=== PATIENT | male | born 1950 | race African-American/Black ===

== ENCOUNTER 2017-04-08 13:15 | Emergency (ER) | payer MEDICARE, MEDICAID ==
[~2017-04-08] VITALS: Ht 177.8 cm; Wt 64.0 kg
[~2017-04-08 13:15] MED LIST: ACET-2853 PO; ASCO-339 PO; BISA10SU RC; CRAN450T3 PO; FERR142T6 PO; FOLI-43; FOLI-43 PO; KEPP500 PO; LEVE500T19 PO; MOM PO; MULT-1116 PO; PHEN100C4; POTA40LI2; SOD133EN RC; VITAMIN B1 PO
[2017-04-08 15:10] LABS: BASOPHILS % 0.5 % (0.0-2.0); EOSINOPHILS % 1.5 % (0.0-5.0); HEMATOCRIT. 46.2 % (42.0-52.0); HEMOGLOBIN. 15.7 g/dL (14.0-18.0); LYMPHOCYTES % 41.4 % (20.0-50.0); MEAN CORPUSCULAR HEMOGLOBIN 33.8 pg (28.0-32.0); MEAN PLATELET VOLUME 8.6 fl (7.4-10.4); MONOCYTES % 7.2 % (2.0-8.0); NEUTROPHILS % 49.4 % (40.0-76.0); PLATELET 112 x1000/uL (130-400); RED BLOOD CELL COUNT 4.66 mill/uL (4.7-6.1); RED CELL DISTRIBUTION WIDTH 17.3 % (11.6-14.6)
[2017-04-08 15:17] LABS: INR 1.1; PROTHROMBIN TIME 11.5 sec (9.4-11.6)
[2017-04-08 15:23] LABS: CHLORIDE 97 mEq/L (98-107)
[2017-04-08 15:39] LABS: CLARITY URINE CLEAR (CLEAR); COLOR URINE DARK YELLOW (YELLOW); KETONES URINE TRACE (NEGATIVE); LEUKOCYTE ESTERASE URINE NEGATIVE (NEGATIVE); NITRITE URINE NEGATIVE (NEGATIVE); OCCULT BLOOD URINE NEGATIVE (NEGATIVE); PH URINE 5.5 (4.5-8.0); PROTEIN URINE 1+ (NEGATIVE); SPECIFIC GRAVITY URINE 1.021 (1.005-1.030)
[2017-04-08] MEDS ORDERED: MORPHINE SULFATE 4 MG/ML CPJ (NOT FOR IM USE) IV ONE (17:00)
[2017-04-08 18:20] VITALS: BP 116/75
== END 2017-04-08 18:35 | disposition home or self-care (01) ==
LOC: ER 13:43
DX: R10.30 Lower abdominal pain, unspecified (principal); R11.2 Nausea with vomiting, unspecified; R68.83 Chills (without fever); E11.9 Type 2 diabetes mellitus without complications; I10 Essential (primary) hypertension; F17.200 Nicotine dependence, unspecified, uncomplicated; F10.20 Alcohol dependence, uncomplicated
CPT/HCPCS: 36415; 74176; 80053; 81003; 83690; 85025; 85610; 96374; 99285; J2270

== ENCOUNTER 2017-06-25 16:52 | Emergency (ER) | payer MEDICARE, MEDICAID ==
[~2017-06-25] VITALS: Ht 175.3 cm; Wt 60.0 kg
[2017-06-25 19:26] LABS: BASOPHILS % 0.4 % (0.0-2.0); EOSINOPHILS % 0.7 % (0.0-5.0); HEMATOCRIT. 38.4 % (42.0-52.0); HEMOGLOBIN. 13.5 g/dL (14.0-18.0); LYMPHOCYTES % 22.9 % (20.0-50.0); MEAN CORPUSCULAR HEMOGLOBIN 36.6 pg (28.0-32.0); MEAN CORPUSCULAR VOLUME 103.8 fL (80.0-94.0); MEAN PLATELET VOLUME 8.8 fl (7.4-10.4); MONOCYTES % 8.9 % (2.0-8.0); NEUTROPHILS % 67.1 % (40.0-76.0); PLATELET 103 x1000/uL (130-400); RED CELL DISTRIBUTION WIDTH 16.1 % (11.6-14.6)
[2017-06-25 19:31] LABS: CHLORIDE 95 mEq/L (98-107)
[2017-06-25 19:33] LABS: PROTHROMBIN TIME 10.9 sec (9.4-11.6)
[2017-06-26] MEDS ORDERED: KETOROLAC 30MG/ML VIAL IV NR (00:12)
[2017-06-26] MEDS ORDERED: ONDANSETRON 4MG ODT PO NR (00:12)
[2017-06-26] MEDS ORDERED: SODIUM CHLORIDE 0.9% 1,000 ML IV ONE (00:12)
[2017-06-26] MEDS ORDERED: FAMOTIDINE 20MG/2ML VIAL IV NR (00:12)
[2017-06-26 00:44] LABS: CLARITY URINE CLEAR (CLEAR); COLOR URINE DARK YELLOW (YELLOW); KETONES URINE 2+ (NEGATIVE); LEUKOCYTE ESTERASE URINE TRACE (NEGATIVE); NITRITE URINE NEGATIVE (NEGATIVE); OCCULT BLOOD URINE NEGATIVE (NEGATIVE); PH URINE 5.5 (4.5-8.0); PROTEIN URINE 2+ (NEGATIVE); SPECIFIC GRAVITY URINE 1.018 (1.005-1.030)
[2017-06-26] MEDS ORDERED: ONDANSETRON HCL 4MG/2ML VIAL IV STA (06:25)
[2017-06-26] MEDS ORDERED: HYDROCODONE/ACETAMINOPHEN 5/325MG TABLET PO STA (06:25)
[2017-06-26 07:11] VITALS: BP 112/72
== END 2017-06-26 07:22 | disposition home or self-care (01) ==
LOC: ER 17:06
DX: K29.00 Acute gastritis without bleeding (principal); R03.0 Elevated blood-pressure reading, without diagnosis of hypertension; E11.9 Type 2 diabetes mellitus without complications; D57.1 Sickle-cell disease without crisis
CPT/HCPCS: 36415; 80053; 81003; 83690; 85025; 85610; 96361; 96374; 96375; 99285; J1885; J2405; J3490; J7030; Q0162

== ENCOUNTER → 2017-07-06 | Outpatient (CLI) | payer MEDICARE, MEDICAID | END | disposition home or self-care (01) | LOC: MRI 11:05 | PROVIDERS: ATTEND Internal Medicine Gastroenterology | DX: K85.90 Acute pancreatitis without necrosis or infection, unspecified (principal); R53.1 Weakness | CPT/HCPCS: 74181 ==

== ENCOUNTER 2018-07-09 20:25 | Inpatient (IN) | payer MEDICARE, MEDICAID ==
[~2018-07-09] VITALS: Ht 167.6 cm; Wt 59.9 kg
[~2018-07-09 20:25] MED LIST changes: -ACET-2853 PO; -ASCO-339 PO; -BISA10SU RC; -CRAN450T3 PO; -FERR142T6 PO; -FOLI-43; -FOLI-43 PO; -LEVE500T19 PO; -MOM PO; -MULT-1116 PO; -PHEN100C4; -POTA40LI2; -SOD133EN RC; -VITAMIN B1 PO
[2018-07-09] MEDS ORDERED: ONDANSETRON HCL 4MG/2ML INJ IV STA (21:18)
[2018-07-09] MEDS ORDERED: MORPHINE SULFATE 4 MG/ML CPJ (NOT FOR IM USE) IV STA (21:18)
[2018-07-09] MEDS ORDERED: SODIUM CHLORIDE 0.9% 1,000 ML IV ONE (21:18)
[2018-07-09] MEDS ORDERED: FAMOTIDINE 20MG/2ML VIAL IV STA (21:18)
[2018-07-09 23:18] LABS: BASOPHILS % 0.5 % (0.0-2.0); EOSINOPHILS % 2.1 % (0.0-5.0); HEMATOCRIT. 32.9 % (42.0-52.0); HEMOGLOBIN. 11.6 g/dL (14.0-18.0); LYMPHOCYTES % 65.9 % (20.0-50.0); MEAN CORPUSCULAR HEMOGLOBIN 35.8 pg (28.0-32.0); MEAN CORPUSCULAR VOLUME 101.8 fL (80.0-94.0); MEAN PLATELET VOLUME 8.4 fl (7.4-10.4); NEUTROPHILS % 24.5 % (40.0-76.0); PLATELET 142 x1000/uL (130-400); RED BLOOD CELL COUNT 3.23 mill/uL (4.7-6.1); RED CELL DISTRIBUTION WIDTH 14.6 % (11.6-14.6)
[2018-07-09 23:24] LABS: CHLORIDE 109 mEq/L (98-107)
[2018-07-09 23:27] LABS: INR 1.1; PROTHROMBIN TIME 10.8 sec (9.6-11.0)
[2018-07-09 23:28] LABS: ETHANOL BLOOD 270 mg/dL
[2018-07-10] VITALS (8 sets, daily range): BP systolic 82–119; BP diastolic 48–66
[2018-07-10] MEDS ORDERED: DEXTROSE 50% WATER 50ML SYRINGE IV PRN
[2018-07-10] MEDS ORDERED: GUAIFENESIN 200MG/10ML SUGAR FREE UDC PO PRN
[2018-07-10] MEDS ORDERED: NA PHOS,M-B/NA PHOS,DI-BA ENEMA 118ML PR PRN
[2018-07-10] MEDS ORDERED: HYDROCODONE/ACETAMINOPHEN 10/325MG TABLET PO PRN
[2018-07-10] MEDS ORDERED: CLONIDINE 0.1MG TABLET PO PRN
[2018-07-10] MEDS ORDERED: MAGNESIUM/ALUMINUM HYDROXIDE/SIMETHICONE 30ML UDC PO PRN
[2018-07-10] MEDS ORDERED: LORAZEPAM 2MG/ML CPJ IV PRN
[2018-07-10] MEDS ORDERED: DIPHENHYDRAMINE 50MG/ML VIAL IV PRN
[2018-07-10] MEDS ORDERED: IPRATROPIUM/ALBUTEROL 0.5-3(2.5)MG/3ML NEB INH PRN
[2018-07-10] MEDS ORDERED: ACETAMINOPHEN 325MG TABLET PO PRN
[2018-07-10] MEDS ORDERED: ONDANSETRON HCL 4MG/2ML INJ IV PRN
[2018-07-10] MEDS ORDERED: HYDRALAZINE 20MG/ML VIAL IV PRN
[2018-07-10] MEDS ORDERED: DOCUSATE SODIUM 100MG CAPSULE PO PRN
[2018-07-10 03:04] LABS: CLARITY URINE CLEAR (CLEAR); COLOR URINE YELLOW (YELLOW); KETONES URINE NEGATIVE (NEGATIVE); LEUKOCYTE ESTERASE URINE TRACE (NEGATIVE); NITRITE URINE POSITIVE (NEGATIVE); OCCULT BLOOD URINE TRACE (NEGATIVE); PROTEIN URINE NEGATIVE (NEGATIVE); SPECIFIC GRAVITY URINE 1.008 (1.005-1.030); UROBILINOGEN URINE 0.2 E.U./dL (0.2-1.0)
[2018-07-10 03:28] LABS: *COCAINE SCREEN URINE NEGATIVE (NEGATIVE); METHADONE URINE SCREEN NEGATIVE (NEGATIVE)
[2018-07-10 03:29] LABS: *AMPHETAMINES SCREEN URINE NEGATIVE (NEGATIVE); *BARBITURATES SCREEN URINE NEGATIVE (NEGATIVE); *BENZODIAZEPINES SCREEN URINE NEGATIVE (NEGATIVE); CANNABINOID URINE SCREEN NEGATIVE (NEGATIVE); OPIATES URINE SCREEN PRESUMTIVE POSITIVE (NEGATIVE); PHENCYCLIDINE URINE SCREEN NEGATIVE (NEGATIVE)
[2018-07-10] MEDS: SODIUM CHLORIDE 0.45% 1,000 ML IV SCH ×3 (05:41→20:55)
[2018-07-10] MEDS: SODIUM CHLORIDE 0.9% INJ 3ML FLUSH IVF SCH ×3 (05:41→21:04)
[2018-07-10] MEDS: BLOOD SUGAR DIAGNOSTIC STRIP TEST SCH ×4 (05:49→20:55)
[2018-07-10] MEDS: INSULIN LISPRO 100 UNITS/ML SUBCUT SCH ×4 (06:39→20:55)
[2018-07-10 08:54] LABS: BASOPHILS % 1.5 % (0.0-2.0); EOSINOPHILS % 2.3 % (0.0-5.0); HEMATOCRIT. 33.1 % (42.0-52.0); HEMOGLOBIN. 11.2 g/dL (14.0-18.0); LYMPHOCYTES % 59.3 % (20.0-50.0); MEAN CORPUSCULAR HEMOGLOBIN 34.8 pg (28.0-32.0); MEAN CORPUSCULAR VOLUME 102.3 fL (80.0-94.0); MEAN PLATELET VOLUME 9.1 fl (7.4-10.4); MONOCYTES % 8.9 % (2.0-8.0); PLATELET 126 x1000/uL (130-400); RED BLOOD CELL COUNT 3.23 mill/uL (4.7-6.1); RED CELL DISTRIBUTION WIDTH 14.7 % (11.6-14.6)
[2018-07-10 09:03] LABS: CHLORIDE 109 mEq/L (98-107)
[2018-07-10 09:24] LABS: LDL CHOLESTEROL 13 mg/dL (5-100)
[2018-07-10 09:25] LABS: CREATINE KINASE 106 IU/L (39-308); T4 FREE 0.83 ng/dL (0.76-1.46)
[2018-07-10 09:26] LABS: HDL CHOLESTEROL 89 mg/dL (40-59)
[2018-07-10 09:28] LABS: CREATINE KINASE MB FRACTION 1.8 ng/mL (0.5-3.6)
[2018-07-10] MEDS: ENOXAPARIN 40MG/0.4ML SYR SUBCUT SCH (12:54)
[2018-07-10] MEDS ORDERED: CEFTRIAXONE 1 G PREMIX 50 ML IV SCH (13:00)
[2018-07-10 15:34] LABS: CREATINE KINASE 110 IU/L (39-308)
[2018-07-10 15:35] LABS: CREATINE KINASE MB FRACTION 2.2 ng/mL (0.5-3.6)
[2018-07-10] MEDS: HYDROMORPHONE HCL/PF 2MG/ML CPJ IV PRN (20:55)
[2018-07-11] VITALS: BP 130/63
[2018-07-11 04:00] VITALS: BP 100/56
[2018-07-11] MEDS: HYDROMORPHONE HCL/PF 2MG/ML CPJ IV PRN (04:18)
[2018-07-11] MEDS: SODIUM CHLORIDE 0.9% INJ 3ML FLUSH IVF SCH ×2 (05:48→17:12)
[2018-07-11] MEDS: BLOOD SUGAR DIAGNOSTIC STRIP TEST SCH ×2 (07:40→12:40)
[2018-07-11 08:00] VITALS: BP 95/62
[2018-07-11] MEDS: INSULIN LISPRO 100 UNITS/ML SUBCUT SCH ×2 (08:10→13:10)
[2018-07-11 12:00] VITALS: BP 96/54
[2018-07-11] MEDS: ENOXAPARIN 40MG/0.4ML SYR SUBCUT SCH (13:00)
[2018-07-11 16:00] VITALS: BP 95/58
== END 2018-07-11 17:25 | disposition home or self-care (01) | DRG 689 ==
LOC: ER 20:25 → 7WST 23:41 → EDBEDREQ 23:47 → EDBEDREQTM 23:47 → ENRESERV 07-10 01:57
PROVIDERS: ADMIT Internal Medicine; ATTEND Internal Medicine
DX: N39.0 Urinary tract infection, site not specified (principal); G93.41 Metabolic encephalopathy; K86.1 Other chronic pancreatitis; E11.9 Type 2 diabetes mellitus without complications; E86.0 Dehydration; F17.210 Nicotine dependence, cigarettes, uncomplicated; I10 Essential (primary) hypertension; I25.10 Atherosclerotic heart disease of native coronary artery without angina pectoris; K57.90 Diverticulosis of intestine, part unspecified, without perforation or abscess without bleeding; K80.20 Calculus of gallbladder without cholecystitis without obstruction; Z79.899 Other long term (current) drug therapy; Z91.14 Patient's other noncompliance with medication regimen
CPT/HCPCS: 36415; 71045; 74176; 80061; 80305; 80320; 82550; 82553; 82962; 83880; 84439; 84443; 84484; 93005; 96374; 96375; 99285; J0696; J1170; J1650; J2270; J2405; J3490; J7030; J7040; G0480

== ENCOUNTER 2018-12-10 13:06 | Emergency (ER) | payer MEDICAID, MEDICARE ==
[~2018-12-10] VITALS: Ht 177.8 cm; Wt 54.0 kg
[2018-12-10 15:08] VITALS: BP 102/70
== END 2018-12-10 15:09 | disposition home or self-care (01) ==
LOC: ER 13:06
DX: Z48.02 Encounter for removal of sutures (principal)
CPT/HCPCS: 99281

== ENCOUNTER 2021-09-21 20:37 | Emergency (ER) | payer MEDICARE, MEDICAID ==
[~2021-09-21] VITALS: Ht 177.8 cm; Wt 54.0 kg
[2021-09-21 20:44] VITALS: BP 120/72
== END 2021-09-21 21:07 | disposition home or self-care (01) ==
LOC: ER 20:37
DX: R56.9 Unspecified convulsions (principal); E11.9 Type 2 diabetes mellitus without complications; R21 Rash and other nonspecific skin eruption; Z91.14 Patient's other noncompliance with medication regimen
CPT/HCPCS: 81025; 82962; 99282